=== PATIENT | male | born 1960 | race Caucasian/White ===

== ENCOUNTER 2020-05-11 15:40 | Inpatient (IN) | payer BC ==
[~2020-05-11] VITALS: Ht 188 cm; Wt 121.0 kg
--- NOTE | 2020-05-11 15:51 | NUR ---
BIB BY [facility] FROM [facility] WHERE PATIENT PRESENTED FOR WORSENING SOB X 7 DAYS SOB/FATIGUE HAS GOTTEN SEVERE ENOUGH THAT PATIENT HAS SYNCOPIZED. WORKUP REVEALED RIGHT SIDED PE AND SMALL PLEURAL EFFUSION AT 12:50P GIVEN (80UNITS/KG) 9,496 UNITS OF HEPARIN A BOLUS AND THEN STARTED ON DRIP AT 18UNITS/KG (2124 UNITS) ON ARRIVAL VSS, REQUIRING 2L NC ROOM AIR POX 88%. DENIES CHEST PAIN ECG OBTAINED ERP MADE AWARE OF ARRIVAL AND NEED FOR EVAL/HEPARIN DRIP ORDERS Pre hospital heparin drip NOT re-started as patient received very large dose of heparin en route-erp aware
[2020-05-11] MEDS ORDERED: PLEASE ENTER ALLERGIES MC SCH (16:00)
[2020-05-11] MEDS ORDERED: SODIUM CHLORIDE FLUSH 10ML SYR IVF ONE (16:00)
[2020-05-11] MEDS ORDERED: PLEASE ENTER HEIGHT AND WEIGHT MC SCH (16:00)
[2020-05-11] MEDS ORDERED: HEPARIN 25,000 UNITS/250ML PMX 250 ML ONE (16:18)
--- NOTE | 2020-05-11 16:21 | NUR ---
LAB AT BEDSIDE FOR FULL SET OF LABS INCLUDING ANTI-Xa
--- NOTE | 2020-05-11 16:28 | NUR ---
ct disc from prior hosital walked to radiology for upload
[2020-05-11 16:29] LABS: BASOPHILS % (AUTO) 1 % (0-1); EOSINOPHILS % (AUTO) 1 % (1-7); LYMPHOCYTES % (AUTO) 19 % (22-44); MEAN CORPUSCULAR HEMOGLOBIN 30.4 pg (27.5-34.5); MEAN CORPUSCULAR HGB CONC 35.1 g/dL (33.2-36.2); MEAN PLATELET VOLUME 8.6 fL (7.4-10.4); MONOCYTES % (AUTO) 10 % (2-9); NEUTROPHILS % (AUTO) 70 % (42-75); PLATELET COUNT 210 x10^3/uL (130-400); RED BLOOD COUNT 5.52 x10^6/uL (4.38-5.82); RED CELL DISTRIBUTION WIDTH 13.8 % (9.4-14.8)
[2020-05-11 16:30] LABS: MD NO
[2020-05-11] MEDS ORDERED: HEPARIN 5,000 UNITS/ML, 1ML IV ONE (16:30)
[2020-05-11] MEDS ORDERED: HEPARIN 5,000 UNITS/ML, 1ML IV PRN (16:30)
[2020-05-11 16:35] LABS: ALANINE AMINOTRANSFERASE 30 U/L (12-78); ALBUMIN 3.6 g/dL (3.4-5.0); ANION GAP 10 mmol/L (5-15); CALCIUM 8.7 mg/dL (8.5-10.1); CHLORIDE 113 mmol/L (98-107); CREATININE 1.07 mg/dL (0.7-1.3)
[2020-05-11 16:39] LABS: ALKALINE PHOSPHATASE 70 U/L (45-117); TOTAL PROTEIN 6.2 g/dL (6.4-8.2); TROPONIN I < 0.015 ng/mL (0.000-0.045)
--- NOTE | 2020-05-11 16:55 | NUR ---
lab called to expedite ant-xa result
[2020-05-11 16:58] LABS: INTERNATIONAL NORMALIZED RATIO 1.36 (0.93-1.1); PROTHROMBIN TIME 14.5 Seconds (9.6-11.5)
[2020-05-11 17:04] LABS: PARTIAL THROMBOPLASTIN TIME > 95 Seconds (25-31)
[2020-05-11] MEDS: HEPARIN 25,000 UNITS/250ML PMX 250 ML IV PRN (17:42)
--- NOTE | 2020-05-11 17:50 | NUR ---
HEPARIN DRIP RE-STARTED AFTER CLARIFICATION WITH PHARMACIST/MANAGER SOFTWARE AT 1100 UNITS/HR (NOT 900) DESPITE ANT-XA BEING 0.87. ELEVATED RESULTS DUE TO PRIOR BOLUS/RATE BEING SUBSTATIALLY HIGHER THAN [facility]S HEPARIN SCALE
[2020-05-11] MEDS ORDERED: LOSA100T14 PO (18:00)
[2020-05-11 19:40] VITALS: BP 111/69
[2020-05-11] MEDS ORDERED: DOCUSATE 100 MG CAPSULE PO PRN (21:00)
[2020-05-11] MEDS ORDERED: HYDR25TA6 PO (23:27)
[2020-05-11] MEDS ORDERED: FLUT9.9S INH (23:27)
[2020-05-11] MEDS ORDERED: ASPI-963 PO (23:27)
[2020-05-12 00:12] VITALS: BP 124/88
[2020-05-12] MEDS ORDERED: Albuterol inhaler INH (04:20)
[2020-05-12] MEDS ORDERED: MOXI400T30 PO (04:22)
[2020-05-12 05:05] LABS: BASOPHILS % (AUTO) 1 % (0-1); EOSINOPHILS % (AUTO) 4 % (1-7); LYMPHOCYTES % (AUTO) 32 % (22-44); MEAN CORPUSCULAR HEMOGLOBIN 29.8 pg (27.5-34.5); MEAN CORPUSCULAR HGB CONC 34.6 g/dL (33.2-36.2); MEAN PLATELET VOLUME 8.9 fL (7.4-10.4); MONOCYTES % (AUTO) 15 % (2-9); NEUTROPHILS % (AUTO) 49 % (42-75); PLATELET COUNT 199 x10^3/uL (130-400); RED BLOOD COUNT 5.32 x10^6/uL (4.38-5.82)
[2020-05-12 05:06] LABS: MD NO
[2020-05-12 05:08] LABS: ANION GAP 10 mmol/L (5-15); CALCIUM 8.8 mg/dL (8.5-10.1); CHLORIDE 113 mmol/L (98-107)
[2020-05-12 06:58] VITALS: BP 122/82
[2020-05-12] MEDS: HEPARIN 25,000 UNITS/250ML PMX 250 ML IV PRN (08:26)
[2020-05-12] MEDS ORDERED: POTASSIUM CHLORIDE 20 MEQ TAB.ER.PRT PO ONE (09:00)
[2020-05-12] MEDS ORDERED: LOSARTAN 100 MG TAB PO SCH (09:00)
[2020-05-12 12:08] VITALS: BP 132/62
[2020-05-12 20:35] VITALS: BP 148/96
[2020-05-12] MEDS: LOSARTAN 100 MG TAB PO SCH (20:57)
[2020-05-13 01:19] VITALS: BP 126/87
[2020-05-13] MEDS: HEPARIN 25,000 UNITS/250ML PMX 250 ML IV PRN (04:00)
[2020-05-13 05:14] LABS: ANION GAP 9 mmol/L (5-15); CALCIUM 8.6 mg/dL (8.5-10.1); CHLORIDE 114 mmol/L (98-107); CREATININE 1.04 mg/dL (0.7-1.3)
[2020-05-13] MEDS ORDERED: POTASSIUM CHLORIDE 20 MEQ TAB.ER.PRT PO ONE (08:00)
[2020-05-13 08:26] VITALS: BP 131/89
[2020-05-13] MEDS: APIXABAN 5 MG TABLET PO SCH ×2 (08:57→20:19)
[2020-05-13] MEDS ORDERED: APIX5TAB PO (12:14)
[2020-05-13 12:30] VITALS: BP 128/85
[2020-05-13 19:01] VITALS: BP 135/93
[2020-05-13] MEDS: LOSARTAN 100 MG TAB PO SCH (20:19)
[2020-05-14 01:16] VITALS: BP 117/80
[2020-05-14 07:18] VITALS: BP 125/84
[2020-05-14] MEDS: APIXABAN 5 MG TABLET PO SCH (10:51)
[2020-05-14 13:45] VITALS: BP 117/75
[2020-05-14] MEDS ORDERED: ASPI-963 PO ×2 (14:26)
[2020-05-14] MEDS ORDERED: APIX5TAB PO ×3 (14:28→20:05)
[2020-05-14] MEDS ORDERED: APIXABAN 5 MG TABLET PO SCH (21:00)
== END 2020-05-14 17:10 | disposition home or self-care (01) | DRG 175 ==
LOC: ED 17:18 → EDIP 18:09 → 4WST 18:43
PROVIDERS: ADMIT Family Medicine; ATTEND Internal Medicine
DX: I26.99 Other pulmonary embolism without acute cor pulmonale (principal); J96.01 Acute respiratory failure with hypoxia; I31.3 Pericardial effusion (noninflammatory); Z20.822 Contact with and (suspected) exposure to COVID-19; E66.9 Obesity, unspecified; E87.70 Fluid overload, unspecified; I07.1 Rheumatic tricuspid insufficiency; I11.0 Hypertensive heart disease with heart failure; I50.810 Right heart failure, unspecified; Z96.642 Presence of left artificial hip joint; G47.30 Sleep apnea, unspecified; Z59.0 Homelessness; Z79.01 Long term (current) use of anticoagulants; Z79.82 Long term (current) use of aspirin; Z80.1 Family history of malignant neoplasm of trachea, bronchus and lung; Z81.2 Family history of tobacco abuse and dependence; Z79.899 Other long term (current) drug therapy; Z68.34 Body mass index [BMI] 34.0-34.9, adult
CPT/HCPCS: 36415; 80048; 80053; 83735; 84484; 85025; 85520; 85610; 85730; 93005; 93306; 93970; 96374; 99285; G0378; J1644

== ENCOUNTER → 2020-06-04 | Outpatient (CLI) | payer BC ==
[~2020-06-04] MED LIST: APIX5TAB PO; ASPI-963 PO; Albuterol inhaler INH; FLUT9.9S INH; HYDR25TA6 PO; LOSA100T14 PO; MOXI400T30 PO
== END | disposition home or self-care (01) ==
LOC: CVU 12:34
PROVIDERS: ATTEND Internal Medicine Cardiovascular Disease
DX: I36.1 Nonrheumatic tricuspid (valve) insufficiency (principal); I11.9 Hypertensive heart disease without heart failure; I27.20 Pulmonary hypertension, unspecified; I31.3 Pericardial effusion (noninflammatory)
CPT/HCPCS: 93306

== ENCOUNTER 2020-07-30 12:53 | Day surgery (SDC) | payer BC ==
[~2020-07-30] VITALS: Ht 188 cm; Wt 115.0 kg
[2020-07-30] MEDS ORDERED: POTA10TA PO (13:26)
[2020-07-30] MEDS ORDERED: DOXA1TAB2 PO (13:26)
[2020-07-30] MEDS ORDERED: FURO-93 PO (13:26)
[2020-07-30] MEDS ORDERED: APIX5TAB PO (13:26)
[2020-07-30 13:38] VITALS: BP 150/107
[2020-07-30] MEDS ORDERED: DIPHENHYDRAMINE 50 MG/ML, 1ML ONE (14:18)
[2020-07-30] MEDS ORDERED: DIPHENHYDRAMINE 50 MG/ML, 1ML IVPush ONE (14:30)
[2020-07-30] MEDS ORDERED: SODIUM CHLORIDE 0.9% 1,000 ML IV SCH ×2 (14:30→16:30)
[2020-07-30 14:40] LABS: BASOPHILS % (AUTO) 0 % (0-1); EOSINOPHILS % (AUTO) 3 % (1-7); LYMPHOCYTES % (AUTO) 27 % (22-44); MEAN CORPUSCULAR HGB CONC 33.9 g/dL (33.2-36.2); MEAN PLATELET VOLUME 8.3 fL (7.4-10.4); MONOCYTES % (AUTO) 12 % (2-9); NEUTROPHILS % (AUTO) 58 % (42-75); PLATELET COUNT 182 x10^3/uL (130-400); RED BLOOD COUNT 5.42 x10^6/uL (4.38-5.82); RED CELL DISTRIBUTION WIDTH 15.3 % (9.4-14.8)
[2020-07-30 14:49] LABS: INTERNATIONAL NORMALIZED RATIO 1.19 (0.93-1.1); PROTHROMBIN TIME 12.7 Seconds (9.6-11.5)
[2020-07-30 14:52] LABS: ANION GAP 4 mmol/L (5-15); CALCIUM 8.9 mg/dL (8.5-10.1); CHLORIDE 111 mmol/L (98-107); CREATININE 1.16 mg/dL (0.7-1.3)
[2020-07-30] MEDS ORDERED: TICAGRELOR 90 MG TABLET ONE (15:07)
[2020-07-30] MEDS ORDERED: BIVALIRUDIN 250 MG ONE (15:07)
[2020-07-30] MEDS ORDERED: VERAPAMIL 2.5 MG/ML, 2ML ONE (15:07)
[2020-07-30] MEDS ORDERED: FENTANYL PF 100 MCG/2ML ONE (15:07)
[2020-07-30] MEDS ORDERED: HEPARIN 1,000 UNITS/ML, 10ML ONE (15:08)
[2020-07-30] MEDS ORDERED: LIDOCAINE-MPF 1%, 5ML ONE (15:08)
[2020-07-30] MEDS ORDERED: MIDAZOLAM 1 MG/ML, 2ML ONE (15:08)
== END 2020-07-30 17:15 | disposition home or self-care (01) ==
LOC: CACL 12:53
PROVIDERS: ATTEND Internal Medicine Cardiovascular Disease
DX: I27.24 Chronic thromboembolic pulmonary hypertension (principal); I25.10 Atherosclerotic heart disease of native coronary artery without angina pectoris; I42.8 Other cardiomyopathies; I10 Essential (primary) hypertension; E66.3 Overweight; Z68.32 Body mass index [BMI] 32.0-32.9, adult; Z79.01 Long term (current) use of anticoagulants; Z79.899 Other long term (current) drug therapy; Z86.718 Personal history of other venous thrombosis and embolism; Z86.711 Personal history of pulmonary embolism; Z88.0 Allergy status to penicillin
CPT/HCPCS: 36415; 80048; 82803; 83880; 85025; 85610; 93456; 99156; 99157; C1769; C1894; J1200; J1644; J2250; J3010; Q9967; J0583

== ENCOUNTER 2020-12-04 08:33 | Outpatient (CLI) | payer BC ==
[~2020-12-04 08:33] MED LIST changes: +DOXA1TAB2 PO; +FURO-93 PO; +POTA10TA PO
== END 2020-12-04 23:59 | disposition home or self-care (01) ==
LOC: CFH 08:33
PROVIDERS: ATTEND Registered Nurse
DX: I08.8 Other rheumatic multiple valve diseases (principal); R06.02 Shortness of breath
CPT/HCPCS: 93306